=== PATIENT | male | born 1935 | race Caucasian/White ===

== ENCOUNTER 2017-03-14 15:45 | Inpatient (IN) | payer MEDICARE ==
[~2017-03-14] VITALS: Ht 182.9 cm; Wt 87.3 kg
[2017-03-14 16:29] LABS: BASOPHILS % (AUTO) 0.2 % (0-1); EOSINOPHILS # (AUTO) 0.3 X10'3 (0-0.9); HEMATOCRIT 22.1 % (42.0-52.0); HEMOGLOBIN 7.3 g/dl (14.0-17.9); LYMPHOCYTES # (AUTO) 2.5 X10'3 (1.1-4.8); LYMPHOCYTES % (AUTO) 17.3 % (21-51); MEAN CORPUSCULAR HEMOGLOBIN 27.5 PG (27.0-31.0); MEAN CORPUSCULAR HGB CONC 33.1 % (33.0-36.5); MEAN CORPUSCULAR VOLUME 83.1 FL (78-98); MEAN PLATELET VOLUME 8.8 FL (7.4-10.4); MONOCYTES % (AUTO) 7.1 % (2-12); NEUTROPHILS # (AUTO) 10.5 X10'3 (1.8-7.7); NEUTROPHILS % (AUTO) 73.4 % (42-75); PLATELET COUNT 211 X10'3 (140-440); RED BLOOD COUNT 2.66 X10'6 (4.70-6.10); RED CELL DISTRIBUTION WIDTH 14.6 % (11.5-14.5); WHITE BLOOD COUNT 14.3 X10'3 (4.5-11.0)
[2017-03-14] MEDS ORDERED: diltiazem 5mg/ml 5ml inj. IV ONE ×2 (16:30→17:05)
[2017-03-14 16:44] LABS: ALANINE AMINOTRANSFERASE 33 U/L (12-78); ALBUMIN 3.6 G/DL (3.4-5.0); ALBUMIN/GLOBULIN RATIO 1.3 (1.1-1.5); ALKALINE PHOSPHATASE 40 IU/L (46-116); ANION GAP 11 (8-16); ASPARTATE AMINO TRANSFERASE 46 U/L (10-37); BILIRUBIN,TOTAL 0.5 MG/DL (0.1-1.0); BLOOD UREA NITROGEN 31 MG/DL (7-18); BUN/CREATININE RATIO 26.7 (5.4-32.0); CALCIUM 8.2 MG/DL (8.5-10.1); CHLORIDE 101 MMOL/L (99-107); CREATININE 1.16 MG/DL (0.60-1.10); GLUCOSE 194 MG/DL (70-104); POTASSIUM 4.1 MMOL/L (3.5-5.1); SODIUM 136 MMOL/L (135-145); TOTAL CARBON DIOXIDE 24.5 MMOL/L (24-32); TOTAL PROTEIN 6.3 G/DL (6.4-8.2); eGFR 60 ML/MIN
[2017-03-14 16:48] LABS: PROTHROMBIN TIME 79.7 SECONDS (9.0-12.0)
[2017-03-14 16:51] LABS: MAGNESIUM 1.7 MG/DL (1.5-2.4)
[2017-03-14 16:53] LABS: INR 8.3 INR
[2017-03-14 16:59] LABS: ANISOCYTOSIS 1+; MICROCYTOSIS 1+; PLATELET ESTIMATE NORMAL
[2017-03-14 17:00] LABS: POLYCHROMASIA 2+
[2017-03-14] MEDS ORDERED: diltiazem-D5W 125mg/125ml 125 ML IV ONE (17:02)
[2017-03-14] MEDS ORDERED: metoprolol tartrate 1mg/ml inj IV ONE (17:05)
[2017-03-14] MEDS ORDERED: phytonadione inj. 10 MG in normal saline 100ml IV soln 99 ML IV ONE (17:55)
[2017-03-14] MEDS ORDERED: magnesium hydroxide 30ml (MOM) UD suspension PO PRN (17:55)
[2017-03-14] MEDS ORDERED: magnesium 2GM in 50ml NS 50 ML IV PRN (17:55)
[2017-03-14] MEDS: dextrose 5%-1/2 normal saline 1,000 ML IV SCH (17:55)
[2017-03-14] MEDS ORDERED: pantoprazole 40 MG vial IV ONE (17:55)
[2017-03-14] MEDS: diltiazem-D5W 125mg/125ml 125 ML IV SCH ×2 (17:55→20:45)
[2017-03-14] MEDS ORDERED: mag hydrox/Alum hydrox/simeth 30ml oral suspension PO PRN (17:55)
[2017-03-14] MEDS ORDERED: ondansetron/PF 4mg/2ml inj IV PRN (17:55)
[2017-03-14] MEDS ORDERED: potassium Cl 40MEQ/NS 500ml 500 ML IV PRN ×2 (17:55)
[2017-03-14] MEDS ORDERED: potassium Cl 20 mEq SR tablet PO PRN (17:55)
[2017-03-14] MEDS ORDERED: magnesium 4gm in 100ml NS 100 ML IV PRN (17:55)
[2017-03-14] MEDS ORDERED: acetaminophen 325mg tablet PO PRN (17:55)
[2017-03-14] MEDS ORDERED: magnesium Cl slow-release 64mg tablet PO PRN (17:55)
[2017-03-14] MEDS ORDERED: ATOR20TA PO (18:10)
[2017-03-14] MEDS ORDERED: METO-467 PO (18:13)
[2017-03-14] MEDS ORDERED: SIMV40TA4 PO (18:15)
[2017-03-14] MEDS ORDERED: COU4T PO (18:28)
[2017-03-14] MEDS: pantoprazole 40MG/NS 100ML BAG 100 ML IV SCH (21:02)
[2017-03-14 21:43] VITALS: BP 138/58
[2017-03-14 21:55] VITALS: BP 119/61
[2017-03-14 23:00] VITALS: BP 121/56
[2017-03-14 23:42] VITALS: BP 110/82
[2017-03-14 23:49] VITALS: BP 111/57
[2017-03-14 23:57] VITALS: BP 111/57
[2017-03-15] VITALS (24 sets, daily range): BP systolic 103–139; BP diastolic 48–92
[2017-03-15] MEDS: pantoprazole 40MG/NS 100ML BAG 100 ML IV SCH ×5 (00:52→20:43)
[2017-03-15 01:46] LABS: CLARITY,URINE Clear (Clear); COLOR,URINE Yellow (Yellow); GLUCOSE, URINE Negative (Neg); KETONES,URINE Negative (Neg); LEUKOCYTE ESTERASE ,URINE Negative (Neg); NITRITES, URINE Negative (Neg); OCCULT BLOOD,URINE Negative (Neg); PROTEIN,URINE Negative (Neg)
[2017-03-15 01:52] LABS: UA COLLECTION TYPE VOIDED
[2017-03-15] MEDS: dextrose 5%-1/2 normal saline 1,000 ML IV SCH ×3 (04:11→18:50)
[2017-03-15 05:26] LABS: BASOPHILS % (AUTO) 0.2 % (0-1); EOSINOPHILS # (AUTO) 0.3 X10'3 (0-0.9); EOSINOPHILS % (AUTO) 2.6 % (0-6); HEMATOCRIT 28.2 % (42.0-52.0); HEMOGLOBIN 9.3 g/dl (14.0-17.9); LYMPHOCYTES # (AUTO) 2.1 X10'3 (1.1-4.8); LYMPHOCYTES % (AUTO) 22.1 % (21-51); MEAN CORPUSCULAR HEMOGLOBIN 28.4 PG (27.0-31.0); MEAN CORPUSCULAR VOLUME 86.1 FL (78-98); MEAN PLATELET VOLUME 8.8 FL (7.4-10.4); MONOCYTES # (AUTO) 0.9 X10'3 (0-0.9); MONOCYTES % (AUTO) 9.2 % (2-12); NEUTROPHILS # (AUTO) 6.3 X10'3 (1.8-7.7); NEUTROPHILS % (AUTO) 65.9 % (42-75); PLATELET COUNT 149 X10'3 (140-440); RED BLOOD COUNT 3.27 X10'6 (4.70-6.10); RED CELL DISTRIBUTION WIDTH 14.8 % (11.5-14.5); WHITE BLOOD COUNT 9.6 X10'3 (4.5-11.0)
[2017-03-15 05:58] LABS: ALANINE AMINOTRANSFERASE 26 U/L (12-78); ALBUMIN/GLOBULIN RATIO 1.2 (1.1-1.5); ALKALINE PHOSPHATASE 37 IU/L (46-116); ANION GAP 6 (8-16); ASPARTATE AMINO TRANSFERASE 44 U/L (10-37); BILIRUBIN,TOTAL 0.9 MG/DL (0.1-1.0); BLOOD UREA NITROGEN 21 MG/DL (7-18); BUN/CREATININE RATIO 22.8 (5.4-32.0); CALCIUM 7.9 MG/DL (8.5-10.1); CHLORIDE 106 MMOL/L (99-107); CREATININE 0.92 MG/DL (0.60-1.10); GLUCOSE 179 MG/DL (70-104); MAGNESIUM 1.8 MG/DL (1.5-2.4); POTASSIUM 3.7 MMOL/L (3.5-5.1); SODIUM 138 MMOL/L (135-145); TOTAL CARBON DIOXIDE 26.5 MMOL/L (24-32); TOTAL PROTEIN 5.5 G/DL (6.4-8.2); eGFR 79 ML/MIN
[2017-03-15] MEDS: K and/or MAG REPLACEMENT MC SCH (08:00)
[2017-03-15 08:22] LABS: NUCLEATED RED BLOOD CELLS 7 /100WBC (0-0); TOTAL CELLS COUNTED 100
[2017-03-15 08:24] LABS: PLATELET ESTIMATE NORMAL
[2017-03-15 08:25] LABS: POLYCHROMASIA 1+; TARGET CELLS FEW
[2017-03-15 08:50] LABS: BANDS% (MANUAL) 1 % (0-10); LYMPHOCYTES % (MANUAL) 14 % (21-51); MONOCYTES % (MANUAL) 4 % (2-12); NEUTROPHILS % (MANUAL) 81 % (42-75); TOTAL CELLS COUNTED 100
[2017-03-15 08:51] LABS: NUCLEATED RED BLOOD CELLS 7 /100WBC (0-0)
[2017-03-15] MEDS: diltiazem-D5W 125mg/125ml 125 ML IV SCH (11:36)
[2017-03-15 13:52] LABS: INR 1.1 INR; PROTHROMBIN TIME 11.6 SECONDS (9.0-12.0)
[2017-03-15] MEDS ORDERED: normal saline 1000ml 1,000 ML IV SCH (15:59)
[2017-03-15] MEDS ORDERED: LIDOcaine Viscous 15ml cup PO ONE (16:00)
[2017-03-15] MEDS ORDERED: fentaNYL/PF 50MCG/1 ML 2ML syringe IV PRN (16:00)
[2017-03-15] MEDS ORDERED: MIDAZolam 1mg/ml 10ml vial IV PRN (16:00)
[2017-03-15] MEDS ORDERED: MIDAZolam 1mg/ml 10ml vial ONE (16:02)
[2017-03-15] MEDS ORDERED: fentaNYL/PF 50MCG/1 ML 2ML syringe ONE (16:02)
[2017-03-15] MEDS ORDERED: LIDOcaine Viscous 15ml cup ONE (16:03)
[2017-03-15] MEDS ORDERED: enoxaparin 40mg/0.4ml syringe SUBCUT SCH (21:55)
[2017-03-16] VITALS (9 sets, daily range): BP systolic 96–141; BP diastolic 49–82
[2017-03-16] MEDS: HYDROcodone/acetaminophen 10/325mg tab PO PRN ×3 (00:41→22:51)
[2017-03-16 05:03] LABS: BASOPHILS % (AUTO) 0.2 % (0-1); EOSINOPHILS # (AUTO) 0.3 X10'3 (0-0.9); EOSINOPHILS % (AUTO) 3.6 % (0-6); HEMOGLOBIN 8.8 g/dl (14.0-17.9); LYMPHOCYTES # (AUTO) 1.8 X10'3 (1.1-4.8); LYMPHOCYTES % (AUTO) 22.1 % (21-51); MEAN CORPUSCULAR HEMOGLOBIN 28.9 PG (27.0-31.0); MEAN CORPUSCULAR HGB CONC 33.8 % (33.0-36.5); MEAN CORPUSCULAR VOLUME 85.5 FL (78-98); MEAN PLATELET VOLUME 8.6 FL (7.4-10.4); MONOCYTES # (AUTO) 0.9 X10'3 (0-0.9); MONOCYTES % (AUTO) 10.7 % (2-12); NEUTROPHILS # (AUTO) 5.2 X10'3 (1.8-7.7); NEUTROPHILS % (AUTO) 63.4 % (42-75); PLATELET COUNT 187 X10'3 (140-440); RED BLOOD COUNT 3.04 X10'6 (4.70-6.10); RED CELL DISTRIBUTION WIDTH 15.4 % (11.5-14.5); WHITE BLOOD COUNT 8.3 X10'3 (4.5-11.0)
[2017-03-16 05:19] LABS: PROTHROMBIN TIME 10.7 SECONDS (9.0-12.0)
[2017-03-16 05:32] LABS: ALANINE AMINOTRANSFERASE 28 U/L (12-78); ALBUMIN/GLOBULIN RATIO 1.2 (1.1-1.5); ALKALINE PHOSPHATASE 43 IU/L (46-116); ANION GAP 4 (8-16); ASPARTATE AMINO TRANSFERASE 41 U/L (10-37); BILIRUBIN,TOTAL 0.9 MG/DL (0.1-1.0); BLOOD UREA NITROGEN 10 MG/DL (7-18); BUN/CREATININE RATIO 10.3 (5.4-32.0); CALCIUM 7.6 MG/DL (8.5-10.1); CHLORIDE 108 MMOL/L (99-107); CREATININE 0.97 MG/DL (0.60-1.10); GLUCOSE 124 MG/DL (70-104); MAGNESIUM 1.9 MG/DL (1.5-2.4); POTASSIUM 3.9 MMOL/L (3.5-5.1); SODIUM 140 MMOL/L (135-145); TOTAL CARBON DIOXIDE 27.9 MMOL/L (24-32); TOTAL PROTEIN 5.5 G/DL (6.4-8.2); eGFR 74 ML/MIN
[2017-03-16] MEDS: pantoprazole 40 MG vial IV SCH ×2 (07:57→19:20)
[2017-03-16] MEDS: K and/or MAG REPLACEMENT MC SCH (08:00)
[2017-03-16] MEDS: diltiazem-D5W 125mg/125ml 125 ML IV SCH (11:56)
[2017-03-16] MEDS ORDERED: enoxaparin 40mg/0.4ml syringe SUBCUT SCH (20:00)
[2017-03-17] VITALS (16 sets, daily range): BP systolic 103–154; BP diastolic 46–95
[2017-03-17 05:26] LABS: BASOPHILS % (AUTO) 0.3 % (0-1); EOSINOPHILS # (AUTO) 0.2 X10'3 (0-0.9); EOSINOPHILS % (AUTO) 3.1 % (0-6); HEMATOCRIT 27.8 % (42.0-52.0); HEMOGLOBIN 9.3 g/dl (14.0-17.9); LYMPHOCYTES # (AUTO) 1.3 X10'3 (1.1-4.8); MEAN CORPUSCULAR HEMOGLOBIN 28.8 PG (27.0-31.0); MEAN CORPUSCULAR HGB CONC 33.3 % (33.0-36.5); MEAN CORPUSCULAR VOLUME 86.6 FL (78-98); MEAN PLATELET VOLUME 8.5 FL (7.4-10.4); MONOCYTES # (AUTO) 0.9 X10'3 (0-0.9); MONOCYTES % (AUTO) 12.2 % (2-12); NEUTROPHILS % (AUTO) 67.4 % (42-75); PLATELET COUNT 211 X10'3 (140-440); RED BLOOD COUNT 3.21 X10'6 (4.70-6.10); RED CELL DISTRIBUTION WIDTH 15.6 % (11.5-14.5); WHITE BLOOD COUNT 7.4 X10'3 (4.5-11.0)
[2017-03-17 05:44] LABS: PROTHROMBIN TIME 9.9 SECONDS (9.0-12.0)
[2017-03-17 05:49] LABS: ALANINE AMINOTRANSFERASE 26 U/L (12-78); ALBUMIN/GLOBULIN RATIO 1.1 (1.1-1.5); ALKALINE PHOSPHATASE 51 IU/L (46-116); ANION GAP 5 (8-16); ASPARTATE AMINO TRANSFERASE 39 U/L (10-37); BILIRUBIN,TOTAL 0.9 MG/DL (0.1-1.0); BLOOD UREA NITROGEN 9 MG/DL (7-18); CALCIUM 7.9 MG/DL (8.5-10.1); CHLORIDE 103 MMOL/L (99-107); GLUCOSE 149 MG/DL (70-104); MAGNESIUM 2.1 MG/DL (1.5-2.4); POTASSIUM 3.3 MMOL/L (3.5-5.1); SODIUM 137 MMOL/L (135-145); TOTAL CARBON DIOXIDE 28.7 MMOL/L (24-32); TOTAL PROTEIN 5.8 G/DL (6.4-8.2); eGFR 81 ML/MIN
[2017-03-17] MEDS: potassium Cl 20 mEq SR tablet PO PRN ×3 (06:58→16:07)
[2017-03-17] MEDS: pantoprazole 40 MG vial IV SCH ×2 (06:58→20:06)
[2017-03-17] MEDS: K and/or MAG REPLACEMENT MC SCH ×2 (07:04→09:55)
[2017-03-17] MEDS: diltiazem-D5W 125mg/125ml 125 ML IV SCH (08:46)
[2017-03-17] MEDS ORDERED: potassium Cl 40MEQ/NS 500ml 500 ML IV PRN ×2 (09:45)
[2017-03-17] MEDS ORDERED: potassium Cl 20 mEq SR tablet PO PRN ×2 (09:45)
[2017-03-17] MEDS ORDERED: proMETHazine 6.25 mg/5 ml UD oral syrup PO PRN (17:25)
[2017-03-17] MEDS ORDERED: benzocaine/menthol oral lozeng 1 EACH BOX MM PRN (17:25)
[2017-03-17] MEDS ORDERED: diltiazem-D5W 125mg/125ml 125 ML IV SCH (17:55)
[2017-03-17] MEDS: diltiazem 30mg tablet PO SCH (20:06)
[2017-03-17] MEDS: metoprolol tartrate 50mg tablet PO SCH (20:06)
[2017-03-17] MEDS ORDERED: atorvastatin 20mg tablet PO SCH (21:00)
[2017-03-18] VITALS: BP 134/54
[2017-03-18 01:00] VITALS: BP 130/71
[2017-03-18 02:00] VITALS: BP 106/55
[2017-03-18] MEDS: diltiazem 30mg tablet PO SCH ×2 (02:00→07:32)
[2017-03-18 02:30] VITALS: BP 130/71
[2017-03-18] MEDS: HYDROcodone/acetaminophen 10/325mg tab PO PRN (03:55)
[2017-03-18 06:23] LABS: BASOPHILS % (AUTO) 0 % (0-1); EOSINOPHILS # (AUTO) 0.3 X10'3 (0-0.9); EOSINOPHILS % (AUTO) 3.4 % (0-6); HEMATOCRIT 27.2 % (42.0-52.0); LYMPHOCYTES # (AUTO) 1.4 X10'3 (1.1-4.8); LYMPHOCYTES % (AUTO) 14.7 % (21-51); MEAN CORPUSCULAR HEMOGLOBIN 28.8 PG (27.0-31.0); MEAN CORPUSCULAR VOLUME 87.1 FL (78-98); MEAN PLATELET VOLUME 8.5 FL (7.4-10.4); MONOCYTES # (AUTO) 1.2 X10'3 (0-0.9); MONOCYTES % (AUTO) 12.1 % (2-12); NEUTROPHILS # (AUTO) 6.7 X10'3 (1.8-7.7); NEUTROPHILS % (AUTO) 69.8 % (42-75); PLATELET COUNT 237 X10'3 (140-440); RED BLOOD COUNT 3.12 X10'6 (4.70-6.10); RED CELL DISTRIBUTION WIDTH 17.2 % (11.5-14.5); WHITE BLOOD COUNT 9.6 X10'3 (4.5-11.0)
[2017-03-18 06:26] LABS: ALANINE AMINOTRANSFERASE 23 U/L (12-78); ALBUMIN 2.8 G/DL (3.4-5.0); ALBUMIN/GLOBULIN RATIO 0.9 (1.1-1.5); ALKALINE PHOSPHATASE 48 IU/L (46-116); ANION GAP 4 (8-16); ASPARTATE AMINO TRANSFERASE 36 U/L (10-37); BILIRUBIN,TOTAL 1.2 MG/DL (0.1-1.0); BLOOD UREA NITROGEN 11 MG/DL (7-18); CALCIUM 7.9 MG/DL (8.5-10.1); CHLORIDE 103 MMOL/L (99-107); GLUCOSE 139 MG/DL (70-104); MAGNESIUM 2.4 MG/DL (1.5-2.4); POTASSIUM 4.1 MMOL/L (3.5-5.1); SODIUM 135 MMOL/L (135-145); TOTAL CARBON DIOXIDE 28.5 MMOL/L (24-32); TOTAL PROTEIN 5.8 G/DL (6.4-8.2); eGFR 71 ML/MIN
[2017-03-18 06:30] VITALS: BP 107/56
[2017-03-18] MEDS: pantoprazole 40 MG vial IV SCH (07:33)
[2017-03-18] MEDS: metoprolol tartrate 50mg tablet PO SCH (07:33)
[2017-03-18] MEDS: K and/or MAG REPLACEMENT MC SCH ×2 (07:33)
[2017-03-18 11:00] VITALS: BP 103/57
[2017-03-18] MEDS ORDERED: DILT180C66 PO (11:06)
== END 2017-03-18 12:50 | disposition home or self-care (01) | DRG 308 ==
LOC: ER 15:46 → ED HOLD 18:05 → PCU 3S 20:30
PROVIDERS: ADMIT Legal Medicine; ATTEND Emergency Medicine
PROC: 30233N1 Transfusion of Nonautologous Red Blood Cells into Peripheral Vein, Percutaneous Approach (ICD-10-PCS; 2017-03-14)
PROC: 0DB68ZX Excision of Stomach, Via Natural or Artificial Opening Endoscopic, Diagnostic (ICD-10-PCS; principal; 2017-03-15)
DX: I48.91 Unspecified atrial fibrillation (principal); K25.4 Chronic or unspecified gastric ulcer with hemorrhage; D68.9 Coagulation defect, unspecified; K22.2 Esophageal obstruction; D62 Acute posthemorrhagic anemia; D72.829 Elevated white blood cell count, unspecified; S50.02XA Contusion of left elbow, initial encounter; E78.5 Hyperlipidemia, unspecified; W18.39XA Other fall on same level, initial encounter; I10 Essential (primary) hypertension; K29.70 Gastritis, unspecified, without bleeding; K29.80 Duodenitis without bleeding; S80.02XA Contusion of left knee, initial encounter; Z96.651 Presence of right artificial knee joint; Z79.82 Long term (current) use of aspirin; Z85.46 Personal history of malignant neoplasm of prostate; Z79.01 Long term (current) use of anticoagulants; Z87.891 Personal history of nicotine dependence; Y93.89 Activity, other specified; Y92.89 Other specified places as the place of occurrence of the external cause; Y99.8 Other external cause status
CPT/HCPCS: 36415; 43239; 71045; 73030; 73070; 80053; 81003; 83735; 83880; 84484; 85025; 85610; 86885; 86900; 86901; 86920; 87070; 87502; 87503; 88305; 88342; 93005; 96374; 96375; 96376; 97110; 97116; 97162; 99285; A4620; C9113; G0500; J1650; J2250; J3010; J3430; J3490; J7030; P9016; Q0169